=== PATIENT | male | born 1985 ===

== ENCOUNTER 2018-11-11 13:36 | Day surgery (SDC) | payer OTHER ==
[~2018-11-11 13:36] MED LIST: Buffered Lidocaine 1% SYRIN* 1 ML/SYRINGE INTRADERM ONE; Bupivacaine 0.5% SDV PF* 30ML VIAL ONE; Lactated Ringers 1000 ML Bag* 1,000 ML IV SCH; Lidocaine 1% INJ* 10 MG/ML 30 ML SDV ONE; ceFAZolin 2 GM PREMIX in ORs 2 GM/50 ML BAG ONE
[2018-11-11] MEDS ORDERED: ceFAZolin 2 GM PREMIX in ORs 2 GM/50 ML BAG ONE (13:52)
[2018-11-11] MEDS ORDERED: fentaNYL* 50 MCG/ML 2 ML VIAL (100 MCG VIAL) ONE ×3 (15:40→19:44)
[2018-11-11] MEDS ORDERED: Midazolam* 1 MG/ML 2 ML VIAL (2 MG) ONE (15:40)
[2018-11-11] MEDS ORDERED: Bupivacaine 0.25% SDV* 30 ML ONE (16:11)
[2018-11-11] MEDS ORDERED: Propofol* 10 MG/ML 20 ML BTL ONE (16:22)
[2018-11-11] MEDS ORDERED: Dexamethasone IV* 4 MG/ML 1 ML (4 MG) ONE (16:22)
[2018-11-11] MEDS ORDERED: Ketorolac INJ* 30 MG/ML 1 ML VIAL ONE (16:22)
[2018-11-11] MEDS ORDERED: Lidocaine 2% PF * 5 ML VIAL ONE (16:22)
[2018-11-11] MEDS ORDERED: Ondansetron INJ* 2 MG/ML VIAL ONE (16:22)
[2018-11-11] MEDS ORDERED: HYDROmorphone INJ1* 1 MG/ML SYRINGE IV PRN (17:23)
[2018-11-11] MEDS ORDERED: fentaNYL* 50 MCG/ML 2 ML VIAL (100 MCG VIAL) IV PRN (17:23)
[2018-11-11] MEDS ORDERED: Acetaminophen TAB* 325 MG PO PRN (17:23)
[2018-11-11] MEDS ORDERED: Naloxone* 0.4 MG/ML 1 ML VIAL IV PRN (17:23)
[2018-11-11] MEDS ORDERED: HYDROcodone/ACETAMIN 5-325 MG* 1 TAB ONE (18:30)
[2018-11-11] MEDS ORDERED: Metoclopramide IV* 5 MG/ML 2 ML VIAL ONE (19:28)
[2018-11-11 20:28] VITALS: BP 113/63
--- NOTE | 2018-11-11 23:33 | OP ---
DATE OF OPERATION: 11/11/18 - [facility] DATE OF : 87 SURGEON: Abiodun Kern MD POWERHOUSE ELECTRICIAN: IRIS Ha. An membership assistant was needed for the entirety of the procedure to aid in positioning of the arm and retraction. ANESTHESIOLOGIST: Dr. Parker. ANESTHESIA: General. PRE-OP DIAGNOSIS: Left severe peripheral ulnar nerve compression with some findings concerning for ulnar nerve compression at the wrist. POST-OP DIAGNOSIS: Left severe peripheral ulnar nerve compression with some findings concerning for ulnar nerve compression at the wrist. OPERATIVE PROCEDURE: 1. Left ulnar nerve decompression at the wrist. 2. Left ulnar nerve decompression at the elbow with anterior transmuscular transposition. ESTIMATED BLOOD LOSS: 2 mL. COMPLICATIONS: None. FINDINGS: See above and below. DESCRIPTION OF PROCEDURE: Ronaldo was seen in the preoperative holding area. The correct site, side, and procedure were identified. We came back to the operating room, the arm was prepped and draped in the usual fashion. A time- out was performed. The arm was exsanguinated with the Esmarch and the tourniquet was inflated to 250 mmHg. I began by making a longitudinal incision in the proximal palm, it was brought back across the ulnar aspect of the wrist in Mele type fashion. Dissection was carried down to the subcutaneous tissue and palmar fascia. Full thickness flap was raised off of the transverse carpal ligament and the roof of Guyon's canal. To aid in the release of Guyon's canal, I did go ahead and released the transverse carpal ligament in its entirety. I then released the roof of Guyon's canal, coming just ulnar to the hook of the hamate. This was released in its entirety to expose the ulnar artery. The ulnar artery was then traced back proximally through the fat pad and fascia overlying the ulnar neurovascular bundle proximally was all released. There was a bit of a ganglion cyst just at the proximal aspect of Guyon's canal. It was seen just adjacent to the pisotriquetral joint that was excised. I then went ahead and decompressed the ulnar nerve distally out until it bifurcated and both sensory branches were decompressed. Lastly, I released the hypothenar fascia and then the muscle and then subfascial layer to decompress the motor branch. At this point, everything was looking very good. The decompression was very nice. We irrigated out the wound. The skin was closed with 4-0 nylon suture. The arm was abducted and externally rotated and I made a curvilinear incision over the cubital tunnel. Dissection was carried down through the subcutaneous tissue. The branches of the medial antebrachial cutaneous nerve were preserved throughout the case. He had an anconeus epitrochlearis muscle and a very large medial head of the triceps. I went ahead and excised the anconeus epitrochlearis muscle. I then released Cole's ligament deep to that, it was very thick and hypertrophic. I released a superficial FCU fascia, the two heads of the FCU were split and then the subfascial area was released distally using an [facility] nav retractor for visualization. Proximally, I placed an appendiceal retractor and I dissected off the medial triceps, which was overlying the nerve. I excised a portion of the medial triceps. I excised a very thick fascial layer over the nerve proximally. He had an extremely large medial intermuscular septum, this was all excised. I then performed a neurolysis of the nerve using a vessel loop for retraction. I raised step cut type flaps in the flexor pronator fascia proximally and released the muscle off the undersurface of the fascial flaps. The tendinous septa were excised. I then transposed the nerve onto the muscular bed. The motor branch to the ulnar head of the FCU was dissected out a bit to allow for adequate length. A bit of the humeral head of the FCU was excised to prevent any kinking distally. Once the nerve was nicely transposed, I secured the two edges of the flaps end to end to provide a fascial sling to keep the nerve in the transposed position. At this point, everything was looking very good. I obtained hemostasis with a Bovie. The wound was irrigated out, the subcutaneous tissue was reapproximated with 3-0 Vicryl. Skin was closed with 3-0 Monocryl and Steri-Strips. 0.25% Marcaine was infiltrated around all the wounds. The wounds were dressed with Xeroform, 4x4s, an ABD at the elbow, sterile Webril, and then a long arm splint with a lateral buttress was applied. Tourniquet was deflated and he was taken to the recovery room in stable condition. [id number]/[facility] #: [id number] [facility] CENTERLazaro
== END 2018-11-11 20:38 | disposition home or self-care (01) ==
LOC: OREAST 13:36
PROVIDERS: ATTEND Orthopaedic Surgery Hand Surgery
DX: G56.22 Lesion of ulnar nerve, left upper limb (principal); F17.210 Nicotine dependence, cigarettes, uncomplicated
CPT/HCPCS: J0690; J1100; J1885; J2250; J2405; J2704; J2765; J3010; J3490